=== PATIENT | female | born 1950 | race Caucasian/White ===

== ENCOUNTER 2017-03-24 07:28 | Day surgery (SDC) | payer MEDICARE, BC ==
--- NOTE | 2017-03-24 15:01 | Operative Note ---
DATE OF SURGERY: 03/24/2017 OPERATION: ESOPHAGOGASTRODUODENOSCOPY with biopsy. 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 The patient also with chronic cough. The cause for this remains unclear. Upper endoscopy is performed at this time to rule out gastroesophageal reflux disease promoting a chronic cough. The patient did relate that whether she takes Prilosec twice daily or takes no medication for acid reflux, she notes no significant difference in her coughing probably ruling out chronic reflux as a cause. She has been off medication now for the last 2 weeks. ANESTHESIA: Intravenous sedation was administered by the department of anesthesiology and included Diprivan titrated to effect. PROCEDURE: Following informed consent from this alert individual, including a discussion of the risks and benefits of the procedure and an opportunity for the patient to ask questions, the patient was placed in the left lateral decubitus position. The Olympus ZBG296 video endoscope was inserted into the esophagus without resistance. The proximal esophagus had a normal appearance with normal folds and distensibility. The mid and distal esophagus likewise was free from mucosal changes. The squamocolumnar junction did demonstrate very mild irregularity but no raised areas or obvious Aburto's epithelium were appreciated. There were no ulcerations or erosions noted. The stomach was entered and found to be unremarkable. The pylorus was patent. The duodenal bulb, sweep, and descending duodenum were examined in a serial fashion and found to be normal. The endoscope was then drawn back into the body of the stomach. Retroflexion accomplished following air insufflation failed to demonstrate changes. The endoscope was then straightened and withdrawn back through the esophagus. Biopsies were first taken from the GE junction to definitively rule out Aburto's epithelium. Again, the esophagus was otherwise endoscopically normal. The posterior pharynx was evaluated demonstrating normal-appearing vocal cords. There was some mild edema and erythema at the arytenoid processes. The endoscopic was removed and the patient tolerated the procedure well and was returned to the recovery area in stable condition. IMPRESSION: Very slight irregularity of the squamocolumnar junction, otherwise normal esophagogastroduodenoscopy as described above. Biopsies taken from the GE junction. RECOMMENDATION: The patient can be maintained on 20 mg of Prilosec once daily for possible Aburto's epithelium although biopsies are pending. Again, it is unlikely that chronic reflux is the sole cause for her chronic coughing. She notes no difference whether no or off acid blockade. Followup will be with her primary care physician, Pulmonary Medicine, and ENT. As always, thank you for allowing me to participate in the care of your patient. Kishor Shaffer DO CC: Dr. Mikala DYER
[2017-03-24] MEDS ORDERED: LIDOCAINE 2% MDV (20MG/ML) 20ML VIAL IV ONE (15:34)
[2017-03-24] MEDS ORDERED: FENTANYL PF 100MCG/2ML VIAL IV ONE (15:34)
[2017-03-24] MEDS ORDERED: PROPOFOL 10 MG/ML VIAL IV ONE (15:34)
== END 2017-03-24 09:40 | disposition home or self-care (01) ==
LOC: HOP 07:28
PROVIDERS: ATTEND Internal Medicine Gastroenterology
DX: R05 Cough (principal); K31.89 Other diseases of stomach and duodenum; K22.70 Barrett's esophagus without dysplasia; I10 Essential (primary) hypertension; E11.9 Type 2 diabetes mellitus without complications; Z79.84 Long term (current) use of oral hypoglycemic drugs; E03.9 Hypothyroidism, unspecified
CPT/HCPCS: 88305; 88313; 43239; 00740; J3010